=== PATIENT | female | born 1995 | race Caucasian/White ===

== ENCOUNTER 2023-11-15 05:03 | Inpatient (IN) | payer BC ==
[2023-11-15 06:10] LABS: BASOPHILS PERCENT AUTO 0.2 % (0.0-1.0); EOSINOPHILS PERCENT AUTO 0.3 % (1.0-3.0); HEMATOCRIT 39.4 % (37.0-47.0); HEMOGLOBIN 13.4 g/dL (12.0-16.0); LYMPHOCYTES PERCENT AUTO 22.7 % (20.5-50.1); MEAN CORPUSCULAR HEMOGLOBIN 31.8 pg (27.0-34.0); MEAN CORPUSCULAR VOLUME 93.6 fL (80-100); MONOCYTES PERCENT AUTO 7.5 % (2-8); NEUTROPHILS PERCENT AUTO 69.3 % (42.2-75.2); PLATELET COUNT,PLT 209 10^3/uL (150-450); RED BLOOD CELL COUNT 4.21 10^6/uL (4.2-5.4); WHITE BLOOD CELL COUNT,WBC 11.5 10^3/uL (5.0-10.0)
[2023-11-15] MEDS: Penicillin G Potassium 5 MILLUNITS in Sodium Chloride 0.9% 100 ML IV ONE (07:00)
[2023-11-15] MEDS: Lactated Ringers 1,000 ML IV SCH ×2 (07:00→16:59)
[2023-11-15] MEDS ORDERED: Methylergonovine 0.2 MG/1 ML Amp IM PRN (08:43)
[2023-11-15] MEDS ORDERED: Sodium Chloride 0.9% 10 ML Syringe FLUSH PRN (08:43)
[2023-11-15] MEDS ORDERED: Acetaminophen 325 MG Tab PO PRN (08:43)
[2023-11-15] MEDS ORDERED: Tranexamic Acid 1,000 MG in Sodium Chloride 0.9% 100 ML IV PRN (08:43)
[2023-11-15] MEDS ORDERED: Ondansetron 4 MG/2 ML SDV IVPUSH PRN (08:43)
[2023-11-15] MEDS ORDERED: Misoprostol 400 MCG (4 X 100 MCG TAB) RECTAL PRN (08:43)
[2023-11-15] MEDS ORDERED: fentaNYL 100 MCG/2 ML SDV IVPUSH PRN (08:43)
[2023-11-15] MEDS ORDERED: Carboprost Tromethamine 250 MCG/1 ML Amp IM PRN (08:43)
[2023-11-15] MEDS ORDERED: Oxytocin/Normal Saline 30 UNIT/500 ML BAG IV SCH ×2 (08:45→10:00)
[2023-11-15] MEDS: Oxytocin/Normal Saline 30 UNIT/500 ML BAG IV STA (09:13)
[2023-11-15] MEDS: Penicillin G Potassium 3 MILLUNITS in Sodium Chloride 0.9% 100 ML IV SCH (12:15)
[2023-11-15] MEDS ORDERED: fentaNYL 100 MCG/2 ML SDV ONE (13:21)
[2023-11-15] MEDS ORDERED: ePHEDrine 50 MG/ML SDV IVPUSH PRN (14:24)
[2023-11-15] MEDS ORDERED: Phenylephrine HCl In 0.9% NaCl 1 MG/10 ML Syringe IVPUSH PRN (14:24)
[2023-11-15] MEDS ORDERED: Ropivacaine 200 MG in Premix Bag 1 BAG EPIDUR SCH (14:30)
[2023-11-16] MEDS ORDERED: Oxytocin 10 Units/1 ML SDV IM PRN (00:44)
[2023-11-16] MEDS ORDERED: Simethicone 80 MG Tab.Chew PO PRN (00:44)
[2023-11-16] MEDS ORDERED: Acetaminophen 325 MG Tab PO PRN (00:44)
[2023-11-16] MEDS: Witch Hazel Medicated Pads 100/Jar TOP PRN (01:32)
[2023-11-16] MEDS: Benzocaine/Menthol 20%-0.5% Spray 78 GM Cannister TOP PRN (01:33)
[2023-11-16] MEDS: Ibuprofen 800 MG Tab PO SCH (01:33)
[2023-11-16] MEDS: Lactated Ringers 1,000 ML IV ONE (04:19)
[2023-11-16] MEDS: Lidocaine 1% 30 ML SDV INJECT ONE (04:19)
[2023-11-16] MEDS: Docusate Sodium 100 MG Cap PO PRN (08:51)
[2023-11-16] MEDS: Prenatal Multivitamin with Calcium/Folic Acid/Iron Tab PO SCH (15:27)
[2023-11-17 06:21] LABS: HEMATOCRIT 33.7 % (37.0-47.0); MEAN CORPUSCULAR HEMOGLOBIN 31.5 pg (27.0-34.0); MEAN CORPUSCULAR HGB CONC 32.6 g/dL (33.0-35.0); MEAN CORPUSCULAR VOLUME 96.6 fL (80-100); RED BLOOD CELL COUNT 3.49 10^6/uL (4.2-5.4); WHITE BLOOD CELL COUNT,WBC 9.8 10^3/uL (5.0-10.0)
[2023-11-17] MEDS ORDERED: Ketorolac 30 MG/ML SDV IVPUSH ONE (13:44)
[2023-11-17] MEDS ORDERED: Ropivacaine 100 ML EPIDUR ONE (13:44)
[2023-11-17] MEDS ORDERED: fentaNYL 100 MCG/2 ML SDV EPIDUR ONE (13:44)
[2023-11-17] MEDS ORDERED: fentaNYL 100 MCG/2 ML SDV IV ONE (13:44)
[2023-11-17] MEDS ORDERED: Ondansetron 4 MG/2 ML SDV IV ONE (13:44)
== END 2023-11-17 13:45 | disposition home or self-care (01) | DRG 560 ==
LOC: DL.OBCHECK 05:03 → DL.OB 05:39 → OBSVTOIN 23:36
PROVIDERS: ADMIT Family Medicine; ATTEND Family Medicine
PROC: 10D07Z6 Extraction of Products of Conception, Vacuum, Via Natural or Artificial Opening (ICD-10-PCS; principal; 2023-11-15)
PROC: 0KQM0ZZ Repair Perineum Muscle, Open Approach (ICD-10-PCS; 2023-11-15)
PROC: 3E0R3BZ Introduction of Anesthetic Agent into Spinal Canal, Percutaneous Approach (ICD-10-PCS; 2023-11-15)
PROC: 00HU33Z Insertion of Infusion Device into Spinal Canal, Percutaneous Approach (ICD-10-PCS; 2023-11-15)
DX: O80 Encounter for full-term uncomplicated delivery (principal); Z37.0 Single live birth; O99.02 Anemia complicating childbirth; O26.873 Cervical shortening, third trimester; O99.814 Abnormal glucose complicating childbirth; O99.824 Streptococcus B carrier state complicating childbirth; O70.1 Second degree perineal laceration during delivery; O76 Abnormality in fetal heart rate and rhythm complicating labor and delivery; Z3A.38 38 weeks gestation of pregnancy
CPT/HCPCS: 01967; 36415; 51701; 51702; 59409; 84112; 85025; 85027; A9270-GY; C1729; J1885; J2405; J2540; J2590; J2795; J3010; J3490; J7120